=== PATIENT | male | born 1980 | race African-American/Black ===

== ENCOUNTER 2017-01-12 18:58 | Emergency (ER) | payer BC ==
[2017-01-12 21:07] LABS: HEMOGLOBIN 12.6 gm/dl (14.0-17.5); RED BLOOD COUNT 4.31 M/UL (4.20-5.50)
[2017-01-12 21:28] LABS: BUN/CREATININE RATIO 23 (0-10)
== END 2017-01-12 22:55 | disposition home or self-care (01) ==
LOC: ER1 18:58
PROVIDERS: Family Medicine
DX: J02.9 Acute pharyngitis, unspecified (principal); J06.9 Acute upper respiratory infection, unspecified; B34.9 Viral infection, unspecified
CPT/HCPCS: 36415; 71010; 80053; 83605; 85025; 87040; 87081; 87880; 99283